=== PATIENT | male | born 1990 | race Caucasian/White ===

== ENCOUNTER 2018-06-16 04:23 | Emergency (ER) | payer BC, SELFPAY ==
[2018-06-16 04:25] VITALS: BP 185/119; PULSE 85; RESP 28; TEMP 35.9; O2SAT 98; BMI 33.7
[2018-06-16] MEDS: Ketorolac 30 MG/ML Syringe IV (04:42)
[2018-06-16] MEDS: 0.9% Normal Saline 1,000 ML 999 ML IV (04:42)
[2018-06-16] MEDS: Ondansetron 4 MG/2 ML Vial IV (04:42)
--- NOTE | 2018-06-16 04:45 | CT_ITS ---
STUDY: CT ABDOMEN AND PELVIS WITHOUT CONTRAST REASON FOR EXAM: Male, 28 years old. Right flank pain and vomiting. RADIATION DOSAGE (If Supplied By Facility): CTDIvol = ( 18.91 ) mGy, DLP = ( 1143.48 ) mGycm TECHNIQUE: Transaxial images were obtained from the dome of the diaphragm to the symphysis pubis without oral contrast, and without intravenous contrast. Sagittal and coronal images were reconstructed. Individualized dose optimization techniques were used for this CT. COMPARISON: None. FINDINGS: The visualized lung bases are unremarkable. The visualized portions of the heart are within normal limits. There is decreased attenuation of the liver consistent with steatosis. Normal gallbladder and extrahepatic biliary system. Normal spleen. Normal pancreas. Normal bilateral adrenal glands. Mild right hydronephrosis secondary to a 4 mm x 3 mm mid ureteral stone located approximately the level of the superior endplate of L5. Normal left kidney. Normal visualized stomach. Normal small intestine. Normal colon. The appendix is well visualized and appears normal axial images 142 through 156. Normal abdominal aorta. Normal inferior vena cava. Normal retroperitoneum. Transabdominal and Normal urinary bladder. Normal visualized prostate gland. Normal abdominal wall. Normal osseous structures. CT/Abdomen/Pelvis without Cont IMPRESSION: Mild right hydronephrosis secondary to a 4 mm mid ureteral stone. Normal appendix. Fatty liver. Electronically Signed: Juanjose Burns MD at 5:30 EDT , Service support ,
--- NOTE | 2018-06-16 04:47 | ED.DCSUM_ITS ---
- ER Visit Summary Date of Service: 06/16/18 Chief Complaint: [Right flank pain] History of Present Illness: The patient is a 28 M [who woke up from sleep at 330 with severe right flank pain. It is radiating down to his right groin. He has nausea and vomiting. No hematuria or urine symptoms. Bowel movements have been normal. He broke out into a sweat with the pain. He is otherwise healthy. He does smoke he does drink alcohol. He has never had pain like this in the past.] Physical Examination: [] Blood pressure 185/119 respiratory rate 28 Moderate distress due to pain PERRL EOMI MMM NECK supple and nontender, no masses RRR no murmur rub or gallop, no peripheral edema, symmetric radial pulses CTAB no respiratory distress ABDOMEN is soft and nontender, normal bowel sounds, no distension, no rebound or guarding SKIN is warm and dry no rashes Alert and Oriented x3, CN II-XII in tact, no motor or sensory deficits, gait normal No lymphadenopathy Test Results: [] Emergency Department Course and Treatment: [Patient was given IV fluids Toradol Zofran and morphine. Screening labs urine and CT of abdomen were obtained. Patient's pain did come back and he was given another dose of morphine. He has a 4 mm stone at the right ureter. No signs of infection. At this time he will be discharged home with a strainer Percocet Zofran and Flomax. He was given a referral to Dr. martins. He was given precautions for which to return. Treatment Plan: [] Disposition: [Discharge] Impression: [Urolithiasis] This note was generated with [employer] dictation software. It may contain incorrect words, spelling, and punctuation that were not noted in review of the chart prior to signing ED Disposition - Plan for ED Patient: Chief Complaint: Flank Pain Referrals: Care Physician,No Primary [Primary Care Provider] -
[2018-06-16] MEDS: morphine 8 MG/ML Syringe 6 MG IV ×2 (04:49→06:52)
[2018-06-16 04:58] LABS: Absolute Lymphocyte Count 4.79 X10^3/ul (0.83-4.51); Absolute Neutrophil Count 3.7 X10^3/uL (2.0-7.7); Basophil# 0.05 X10^3/uL; Basophil% 0.5 % (0-1); Eosinophil# 0.15 X10^3/uL; Eosinophils% 1.5 % (0-5); Hematocrit 45.5 % (40-54); Lymphocyte # 4.79 X10^3/ul (4.0); Lymphocyte % 48.6 % (19-41); Mean Corp Hgb Conc 35.2 g/gl (32-36); Mean Corpuscular Hgb 30.1 pg (27.0-32.0); Mean Corpuscular Volume 85.7 fL (80-94); Mean Platelet Vol. 8.8 fl (6.2-12.0); Monocyte# 1.14 X10^3/uL; Monocyte% 11.6 % (0-10); Neutrophil # 3.68 X10^3/uL (2.7-7.7); Neutrophil % 37.3 % (47-70); POSITIVE COUNT NO; POSITIVE DIFFERENTIAL NO; POSITIVE MORPHOLOGY NO; Platelet Count 345 K/mm3 (150-450); RBC Distribution Width CV 12.9 % (11.6-14.6); Red Blood Count 5.31 M/mm3 (4.6-6.2); White Blood Count 9.9 K/mm3 (4.4-11.0)
[2018-06-16 05:02] LABS: Anion Gap 14 (5-15); BUN 14 mg/dL (7-18); Chloride 103 mmol/L (98-107); Creatinine, Serum 1.08 mg/dL (0.70-1.30); EST Glomerular Filtration Rate 85 mL/min (>60); Est Glom Filt Rate - Afr Amer 103 mL/min (>60); Estimated Creatinine Clearance 109.77 ml/min; Glucose 120 mg/dL (74-106); Potassium 3.4 mmol/L (3.5-5.1); Sodium Level 143 mmol/L (136-145)
[2018-06-16 06:22] LABS: Bacteria 0 SEEN /hpf (None Seen); Squamous Epithelial Cells - UA 0 SEEN /hpf (0-5)
[2018-06-16 06:45] LABS: Color, Urine Yellow (Yellow); Glucose, Dipstick Normal (Normal); Ketone-Dipstick 15 mg/dl (Negative); Leukocyte Esterase-Dipstick 25 /ul (Negative); Nitrite-Dipstick Negative (Negative); Occult Blood-Urine 50 /ul (Negative); Protein-Dipstick 30 mg/dl (Negative); Specific Gravity, Urine 1.025 (1.002-1.030); Urine Bilirubin Dipstick Negative (Negative); Urine Clarity Clear (Clear); Urine Urobilinogen Normal (Normal)
[2018-06-16 06:53] LABS: Mucous, Urine 3+ /hpf (<or=2+); Red Blood Cells-Urine 0-5 SEEN /hpf (0-5); White Blood Cells 0-5 SEEN /hpf (0-5)
--- NOTE | 2018-06-16 07:23 | ED.DEP ---
ED Disposition - Plan for ED Patient: Chief Complaint: Flank Pain Instructions: ED Stone Renal W Colic Prescriptions: Oxycodone HCl/Acetaminophen [Percocet 5/325] 1 tablet PO Q6H PRN PRN 3 Days #14 tablet PRN Reason: Pain Ondansetron [Zofran Odt] 4 mg PO Q8H PRN PRN #10 tablet PRN Reason: Nausea Tamsulosin HCl [Flomax] 0.4 mg PO DAILY #14 capsule Referrals: Aaliyah Rodriguez MD [STAFF PHYSICIAN] - 1-2 Weeks
[2018-06-16 07:33] VITALS: BP 176/91; O2SAT 99
== END 2018-06-16 07:37 | disposition home or self-care (01) ==
PROVIDERS: Emergency Provider Emergency Medicine
DX: N13.2 Hydronephrosis with renal and ureteral calculous obstruction (principal); Z72.0 Tobacco use
CPT/HCPCS: 74176; 80048; 81001; 85025; 96361; 96374; 96375; 96376; 99283; J7030; A4216; J2405

== ENCOUNTER 2018-06-18 11:38 | Emergency (ER) | payer BC, SELFPAY ==
[2018-06-18 11:39] VITALS: BP 147/99; PULSE 77; RESP 18; TEMP 531.3; TEMP 988.3; O2SAT 99; BMI 32.5
--- NOTE | 2018-06-18 11:57 | ED.DCSUM_ITS ---
- ER Visit Summary Date of Service: 06/18/18 Chief Complaint: Right flank pain and medication refill History of Present Illness: The patient is a 28 M who presents with right flank pain that became worse again today. Patient was seen here recently and diagnosed with a 4 mm kidney stone on the right. Patient was given a prescription for Percocet. Patient states this does help with the pain. Patient states he is unable to work while he takes that. Patient is requesting something nonnarcotic to help with his pain. Patient states he has been taking Tylenol which does help his pain some. Patient denies any dysuria or hematuria. Patient denies any fevers or chills. Patient admits to some nausea but denies any vomiting. Physical Examination: Vital signs are stable. Patient is afebrile. Patient is in no acute distress. Oral mucosa is pink and moist. Neck is supple. There is no JVD noted. Heart was regular rate and rhythm. Lungs are clear and equal bilaterally. Abdomen is soft. Bowel sounds are normal. There is some mild right CVA tenderness. There is no rebound or guarding noted. Cranial nerves II through XII are intact. There are no focal motor or sensory deficits noted. The remaining physical exam is within normal limits. Emergency Department Course and Treatment: Patient was given a prescription for Naprosyn. Patient was instructed to drink plenty of fluids. Patient was instructed to follow-up with his primary care physician and urologist as scheduled. Patient understood and was agreeable with the plan. All questions were answered. Disposition: Discharged home Impression: Right flank pain This note was generated with [employer] dictation software. It may contain incorrect words, spelling, and punctuation that were not noted in review of the chart prior to signing ED Disposition - Plan for ED Patient: Disposition: Home or Assisted Living Chief Complaint: Med Refill Diagnosis: Right flank pain, History of renal stone Prescriptions: Naproxen [Naprosyn] 500 mg PO BID #20 tab Referrals: Care Physician,No Primary [Primary Care Provider] -
[2018-06-18 12:26] VITALS: RESP 12
== END 2018-06-18 12:29 | disposition home or self-care (01) ==
PROVIDERS: Emergency Provider Emergency Medicine
DX: R10.9 Unspecified abdominal pain (principal); R11.0 Nausea; Z87.442 Personal history of urinary calculi; F17.210 Nicotine dependence, cigarettes, uncomplicated
CPT/HCPCS: 99282